=== PATIENT | female | born 1980 | race Caucasian/White ===

== ENCOUNTER 2017-04-11 22:22 | Emergency (ER) | payer SELFPAY ==
[~2017-04-11] VITALS: Ht 162.6 cm; Wt 79.1 kg
[2017-04-11 22:26] VITALS: BP 157/81; PULSE 106; TEMP 98.9
[2017-04-11] MEDS ORDERED: CEPHALEXIN500 M1 PO (23:33)
== END 2017-04-11 23:43 | disposition home or self-care (01) ==
LOC: COL.ER 22:22
DX: S61.012A Laceration without foreign body of left thumb without damage to nail, initial encounter (principal); W26.0XXA Contact with knife, initial encounter

== ENCOUNTER 2017-04-15 12:58 | Day surgery (SDC) | payer SELFPAY ==
[~2017-04-15] VITALS: Ht 162.6 cm; Wt 79.1 kg
[~2017-04-15 12:58] MED LIST: CEPHALEXIN500 M1 PO
[2017-04-15 13:32] VITALS: BP 124/77; PULSE 80; TEMP 98.5
[2017-04-15 15:52] VITALS: BP 126/76; PULSE 94; TEMP 97.4
[2017-04-15 16:00] VITALS: BP 120/67; PULSE 86
[2017-04-15 16:15] VITALS: BP 122/76; PULSE 74
[2017-04-15] MEDS ORDERED: NORCO 325 MG-51 TAB PO (16:17)
[2017-04-15 16:30] VITALS: BP 118/69; PULSE 80
== END 2017-04-15 17:05 | disposition home or self-care (01) ==
LOC: SDCO 12:58
DX: S66.222A Laceration of extensor muscle, fascia and tendon of left thumb at wrist and hand level, initial encounter (principal); F17.210 Nicotine dependence, cigarettes, uncomplicated; Z83.3 Family history of diabetes mellitus
CPT/HCPCS: J2250; J2704; J2795; J3010; J7120